=== PATIENT | male | born 1940 | race Caucasian/White ===

== ENCOUNTER 2020-04-28 13:43 | Outpatient (CLI) | payer OTHER ==
--- NOTE | 2020-04-28 14:59 | RAD ---
LEFT FOOT 3 VIEWS: HISTORY: Foot pain. FINDINGS: Prominent enthesophyte from the plantar calcaneus. Degenerative changes of the intertarsal joints an d at the tarsometatarsal joints. There is an acute fracture involving the distal diaphysis of the 2nd metatarsal without significant d isplacement. Degenerative changes are noted at the 1st and 2nd MTP joints. Deformity of the proximal phalanx of t he 2nd toe suggests old injury. Degenerative change in the IP joints is noted. IMPRESSION: 1. Acute fracture distal diaphysis of the 2nd metatarsal. 2. There are diffuse degenerative changes as described. POS: AGW
== END 2020-04-28 13:44 | disposition home or self-care (01) ==
LOC: MADRAD 13:43
PROVIDERS: ATTEND Physician Assistant
DX: S99.922A Unspecified injury of left foot, initial encounter (principal); S92.322A Displaced fracture of second metatarsal bone, left foot, initial encounter for closed fracture; M19.072 Primary osteoarthritis, left ankle and foot